=== PATIENT | male | born 1980 | race Caucasian/White ===

== ENCOUNTER 2017-06-04 10:28 | Emergency (ER) | payer SELFPAY ==
[2017-06-04] MEDS ORDERED: AMOXICILLIN TRIHYDRATE 500 MG CAPSULE PO ONE (11:01)
[2017-06-04] MEDS ORDERED: AMOXICILLIN TR/POT CLAVULANATE 500-125 MG TAB PO ONE (11:01)
[2017-06-04] MEDS ORDERED: OXYCODONE-ACETAMINOPHEN 5-325 MG TABLET PO ONE (11:01)
[2017-06-04] MEDS ORDERED: DIPH/PERTUSS(ACELL)/TETANUS VAC/PF 0.5 ML SYR (>=10YO) IM ONE (11:01)
[2017-06-04] MEDS ORDERED: ONDANSETRON 4 MG TAB.RAPDIS PO ONE (11:02)
--- NOTE | 2017-06-04 11:05 | ER Document Report ---
HPI - HPI Patient complains to provider of: dogbites to both hands and left forearm Onset: Just prior to arrival Onset/Duration: Sudden Pain Level: 4 Context: 37 yo male broke up fight between his dogs this morning. Tetanus not current, thinks the dog shots are up to date, but will check when he gets home. Associated Symptoms: None Exacerbated by: Movement Relieved by: Denies Similar symptoms previously: No Recently seen / treated by doctor: No - ROS ROS below otherwise negative: Yes Systems Reviewed and Negative: Yes All other systems reviewed and negative Past Medical History - General Information source: Patient - Social History Smoking Status: Current Every Day Smoker Frequency of alcohol use: None Drug Abuse: None Lives with: Friend - room mate Family History: Reviewed & Not Pertinent - Medical History Medical History: Negative Surgical Hx: Negative Vertical Provider Document - CONSTITUTIONAL Agree With Documented VS: Yes Exam Limitations: No Limitations General Appearance: No Apparent Distress - INFECTION CONTROL TRAVEL OUTSIDE OF THE [place] IN LAST 30 DAYS: No - HEENT HEENT: Normocephalic - NECK Neck: Supple - RESPIRATORY O2 Sat by Pulse Oximetry: 99 - MUSCULOSKELETAL/EXTREMETIES Musculoskeletal/Extremeties: MAEW, FROM, Tender - punctures are tender. All finger tendons function normally. Multiple punctures to fingertips, dorsal hands , left [place] and volar forearm. - NEURO Level of Consciousness: Awake, Alert, Appropriate Motor/Sensory: No Motor Deficit, No Sensory Deficit Course - Vital Signs Vital signs: Temp Pulse Resp BP Pulse Ox 97.9 F 93 18 100/68 99 06/04/17 10:36 06/04/17 10:36 06/04/17 10:36 06/04/17 10:36 06/04/17 10:36 Discharge - Discharge Clinical Impression: bilateral hand dog bites, left foarearm dogbites Condition: Good Disposition: HOME, SELF-CARE Instructions: Animal Bites ([facility]), Augmentin ([facility]), Warm Packs ([facility]) Additional Instructions: return to er tomorrow morning for wound checks keep in touch with [facility] animal control about the dogs and rabies status , you are keeping the dogs take the antibiotic as prescribed twice a day elevate the hands, left arm and use heat on them today no work untl tuesday to er sooner if worse Prescriptions: Ibuprofen [Motrin 800 mg Tablet] 800 mg PO Q8HP PRN #30 tablet PRN Reason: Amoxicillin/Potassium Clav [Augmentin 875-125 Tablet] 1 each PO BID #20 tablet Forms: Return to Work
[2017-06-04 13:36] VITALS: BP 120/79
== END 2017-06-04 13:35 | disposition home or self-care (01) ==
LOC: ER 10:28
DX: S61.452A Open bite of left hand, initial encounter (principal); S61.451A Open bite of right hand, initial encounter; S51.852A Open bite of left forearm, initial encounter; W54.0XXA Bitten by dog, initial encounter; Y93.K9 Activity, other involving animal care; F17.200 Nicotine dependence, unspecified, uncomplicated
CPT/HCPCS: 99283; 90471; 90715; S0119

== ENCOUNTER 2017-06-05 10:48 | Emergency (ER) | payer BC ==
--- NOTE | 2017-06-05 11:12 | ER Document Report ---
HPI - HPI Patient complains to provider of: here for dog bite wound check Onset: Yesterday Onset/Duration: Sudden Pain Level: 1 Context: 37 yo male here for dogbite wound check that I treated yesterday. Taking the Augmentin. States they feel better.No fever. Has kept in touch with [facility] [employer]. Associated Symptoms: None Exacerbated by: Denies Relieved by: Denies Recently seen / treated by doctor: Yes - ROS ROS below otherwise negative: Yes Systems Reviewed and Negative: Yes All other systems reviewed and negative Past Medical History - General Information source: Patient - Social History Smoking Status: Current Every Day Smoker Frequency of alcohol use: None Drug Abuse: None Lives with: Family Family History: Reviewed & Not Pertinent - Medical History Medical History: Negative Renal/ Medical History: Denies: Hx Peritoneal Dialysis Past Surgical History: Reports: Hx Nose Surgery Vertical Provider Document - CONSTITUTIONAL Agree With Documented VS: Yes Exam Limitations: No Limitations General Appearance: No Apparent Distress - INFECTION CONTROL TRAVEL OUTSIDE OF THE [place] IN LAST 30 DAYS: No - HEENT HEENT: Normocephalic - NECK Neck: Supple - RESPIRATORY O2 Sat by Pulse Oximetry: 99 - MUSCULOSKELETAL/EXTREMETIES Musculoskeletal/Extremeties: MAEW, FROM, Non-Tender - all the wounds healing, not red, no pus, no lymphangitis., No Edema - NEURO Level of Consciousness: Awake, Alert Motor/Sensory: No Motor Deficit, No Sensory Deficit - DERM Integumentary: Warm, Dry Course - Vital Signs Vital signs: Temp Pulse Resp BP Pulse Ox 98.0 F 93 16 121/81 99 06/05/17 10:57 06/05/17 10:57 06/05/17 10:57 06/05/17 10:57 06/05/17 10:57 Discharge - Discharge Clinical Impression: Dog bite wound check Condition: Good Disposition: HOME, SELF-CARE Instructions: Animal Bites ([facility]), Puncture Wound ([facility]) Additional Instructions: Continue the antibiotics until they are gone Keep the wounds that are draining covered with bacitracin nonstick dressing Keep in touch with [facility] animal control as instructed yesterday Return to the emergency room for any signs of infection, red streak, swelling, fever
[2017-06-05 11:48] VITALS: BP 122/89
== END 2017-06-05 11:58 | disposition home or self-care (01) ==
LOC: ER 10:48
DX: Z48.00 Encounter for change or removal of nonsurgical wound dressing (principal); W54.0XXD Bitten by dog, subsequent encounter
CPT/HCPCS: 99282